=== PATIENT | female | born 1980 | race Caucasian/White ===

== ENCOUNTER → 2020-02-28 14:47 | Outpatient (BNVA) | payer BC, SELFPAY | PROVIDERS: Visit Provider Psychiatry & Neurology Psychiatry | DX: F41.1 Generalized anxiety disorder (principal); F33.1 Major depressive disorder, recurrent, moderate; F10.20 Alcohol dependence, uncomplicated; F12.20 Cannabis dependence, uncomplicated; F14.21 Cocaine dependence, in remission; F17.200 Nicotine dependence, unspecified, uncomplicated | CPT/HCPCS: 99204 ==

== ENCOUNTER → 2020-04-10 08:03 | Outpatient (BNVA) | payer BC, SELFPAY | PROVIDERS: Visit Provider Psychiatry & Neurology Psychiatry | DX: F33.1 Major depressive disorder, recurrent, moderate (principal); F41.1 Generalized anxiety disorder | CPT/HCPCS: 99213 ==

== ENCOUNTER → 2021-01-20 16:00 | Outpatient (BNVA) | payer OTHER, SELFPAY | PROVIDERS: Visit Provider Nurse Practitioner Family | DX: Z20.822 Contact with and (suspected) exposure to COVID-19 (principal) | CPT/HCPCS: 87635 ==

== ENCOUNTER 2021-02-09 16:42 | Emergency (ER) | payer OTHER, SELFPAY ==
[2021-02-09 17:57] VITALS: BP 135/82; PULSE 86; RESP 16; TEMP 36.8; O2SAT 99; BMI 26.4
--- NOTE | 2021-02-09 19:33 | W.ED.WOUNDLC ---
HPI - Wound/Laceration General: Chief Complaint: Wound/Laceration Stated Complaint: RASH ON FACE Time Seen by Provider: 02/09/21 19:33 History of Present Illness: HPI narrative: 40-year-old female comes in today with some lesions to the face. Patient states that she had a pimple to her right facial cheek and had picked at it now she has increased redness and swelling around it. Patient appears well. Patient appears no acute distress. Review of Systems General: Reports: 10 or more systems reviewed and unremarkable except in HPI and below Skin/Breast: Reports: other (Facial lesion) [facility] ED PFSH: Social History (Updated 01/20/21 @ 15:43 by Citlaly Ramirez NP) Smoking and tobacco status: current every day smoker cigarettes Packs smoked per day: 1 Years cigarettes smoked: 25 Current gender identity: Female Female Reproductive History: Date of last menstrual period: 01/20/21 Physical Exam Const: COMMON NORMALS: no acute distress and patient oriented x3 GENERAL APPEARANCE: cooperative HENMT: COMMON NORMALS: normocephalic and Normal external nose present HEAD & SCALP: normocephalic and other (Mild right periorbital swelling with several crusted lesions to the face) NOSE: Normal external nose present MOUTH: Normal oral and palatal mucosa present Eye: GENERAL EYE: appearance normal, both eyes and all related structures Neck/C-Spine: COMMON NORMALS: full ROM Chest: COMMONS NORMALS: normal inspection of the chest Resp: COMMON NORMALS: normal respiratory effort EFFORT & INSPECTION: Yes able to speak in complete sentences Cardio: COMMON NORMALS: regular rate and regular rhythm RATE: regular rate RHYTHM: regular rhythm GI: COMMON NORMALS: non-tender Extremity: COMMON NORMALS: normal to inspection Neuro: COMMON NORMALS: patient oriented x3 and moves all extremities Psych: COMMON NORMALS: mental status grossly normal and cooperative Skin: NARRATIVE SKIN EXAM: Picking lesions to the face. Course Vital Signs: Vital signs: Vital Signs Temperature 98.2 F 02/09/21 20:12 Pulse Rate 84 02/09/21 20:12 Respiratory Rate 16 02/09/21 20:12 Blood Pressure 128/78 02/09/21 20:12 Pulse Oximetry 99 02/09/21 20:12 MDM - Wound/Laceration MDM Narrative: Medical decision making narrative: Patient comes in for swelling and redness to the periorbital area of the right face. Patient also has a 1 cm crusted lesion to the right facial cheek. Patient also has 2 other crusted lesions of smaller diameter to the left facial cheek. Respirations are even lungs are clear to auscultation. Vital signs are normal. Differential diagnosis includes folliculitis, cellulitis, abscess, impetigo. I believe the patient probably has mild cellulitis secondary to impetigo to the face. This is due to patient picking lesions. Patient will be given mupirocin ointment to use to the lesions and Bactrim 1 tablet twice a day for 7 days to clear up cellulitis. Patient was recommended to monitor for worsening symptoms and return as needed. Courage patient not to pick at lesions. Discharge Plan Discharge Patient Disposition: Home Clinical Impression: Cellulitis of face Condition: Stable Prescriptions: New Bactrim DS 800-160 mg tablet 1 tab PO BID 7 Days Qty: 14 RF: 0 No Action hydroxyzine HCl 50 mg tablet 50 mg PO QID PRN (Reason: anxiety/insomnia) Qty: 120 RF: 2 methadone 40 mg tablet,soluble 60 mg PO DAILY RF: 0 Discharge Orders: Discharge ED (Routine); Ordered 02/09/21 Ordered By: Renan Gonzalez Discharge Diet: Usual diet Discharge Activity: Increase activity as tolerated Patient Instructions: Cellulitis (ED), Opioid Safety Activity Restrictions/Additional Instructions: Avoid picking at the wound. Wash face with mild soap and water. Apply antibiotic ointment to open wounds. Do not pick at the wounds. Take antibiotic sulfa trimethoprim 1 tablet twice a day for the next 7 days. Follow-up with primary care. Return to the ER for new concerns. Coding Level of Care Code ED [employer] Specialist for Gaye Marshall
[2021-02-09] MEDS: mupirocin oint 22 gm 1 APPLIC TOPICAL (20:06)
[2021-02-09] MEDS: sulfamethoxazole-trimeth DS 160-800 mg Tablet 1 TAB PO (20:06)
[2021-02-09 20:12] VITALS: BP 128/78; PULSE 84; RESP 16; TEMP 36.8; O2SAT 99
== END 2021-02-09 20:14 | disposition home or self-care (01) ==
PROVIDERS: Emergency Provider Nurse Practitioner Family
DX: L03.211 Cellulitis of face (principal)
CPT/HCPCS: 99283

== ENCOUNTER 2023-03-16 14:19 | Outpatient (CLI) | payer MEDICAID, SELFPAY ==
--- NOTE | 2023-03-16 14:26 | MR_ITS ---
WS: [id number] MRI LUMBAR SPINE NONCONTRAST HISTORY: LOW BACK PAIN COMPARISON: Radiographs 08/06/2022 TECHNIQUE: Sagittal and axial multisequence imaging is submitted. Normal lumbar alignment with no compression fractures or marrow edema. Mild disc desiccation without narrowing. Conus terminates normally at L1-2 disc level. L1-L2: Normal. L2-L3: Very mild annular disc bulging. No stenosis. L3-L4: Mild annular disc bulging and mild ligamentum flavum and facet arthritis. Minimal encroachment and narrowing of the foramina. L4-L5: Mild annular disc bulging with mild ligamentum flavum and facet arthritis. There is mild encro achment upon the traversing L5 nerve roots but no stenosis. L5-S1: Mild annular disc bulging. No focal disc protrusions. No stenosis. Paravertebral soft tissues are normal. IMPRESSION: 1. No high-grade central or foraminal stenosis and no disc protrusions. 2. Very mild encroachment upon the foramina of L3-4. No stenosis. 3. Mild disc encroachment upon the subarticular recesses and the traversing L5 nerve roots. No high-g rade stenosis.
== END 2023-03-16 14:20 | disposition home or self-care (01) ==
PROVIDERS: PCP Family Medicine; Visit Provider Family Medicine
DX: M54.50 Low back pain, unspecified (principal)
CPT/HCPCS: 72148

== ENCOUNTER 2024-03-30 19:11 | Emergency (ER) | payer MEDICAID, SELFPAY ==
[2024-03-30 19:26] VITALS: BP 132/83; PULSE 109; RESP 16; TEMP 36.9; O2SAT 95; BMI 28.3
--- NOTE | 2024-03-30 19:47 | ED_ITS ---
HPI - Dental/Oral General: Chief complaint: Dental/Oral Stated complaint: Face Swollen Time Seen by Provider: 03/30/24 19:45 History of Present Illness: 43-year-old female comes in today for so me facial swelling. Patient states that she was referred to the ER to have her abscess drained by her dentist. Patient appears nontoxic. Patient was started on Augmentin today after being evaluated by the dentist who told her that she would need to see seen in the ER to have the abscess drained or see a maxillofacial facial surgeon. Patient appears nontoxic. Patient is handling secretions well. Patient has not started antibiotics. Mild swelling is noted. Related Data Home Medications Medication Instructions Recorded Confirmed methadone 40 mg soluble tablet 60 mg PO DAILY 01/20/21 01/20/21 Previous Rx's Medication Instructions Recorded hydroxyzine HCl 50 mg tablet 50 mg PO QID PRN anxiety/insomnia 04/10/20 #120 tabs prednisone 20 mg tablet 20 mg PO BID 5 days #10 tabs 03/30/24 Allergies Allergy/AdvReac Type Severity Reaction Status Date / Time No Known Allergies Allergy Verified 01/20/21 15:42 Review of Systems General: Reports: 10 or more systems reviewed and unremarkable except in HPI and below PFSH ED PFSH: Social History (Updated 01/20/21 @ 15:43 by Citlaly Ramirez NP) Smoking and tobacco/nicotine status: current every day tobacco/nicotine user cigarettes Packs smoked per day: 1 Years cigarettes smoked: 25 Current gender identity: Female Physical Exam Const: COMMON NORMALS: alert HENMT: OTHER: Patient has mild swelling to the left lower jaw. Examination of the oral cavity and gingiva notes no obvious abscess. Posterior pharynx is normal. Neck/C-Spine: COMMON NORMALS: full ROM Resp: COMMON NORMALS: normal respiratory effort Cardio: COMMON NORMALS: regular rate RATE: regular rate GI: COMMON NORMALS: Soft to palpation PALPATION: Yes Soft to palpation Back/Pelvis: COMMON NORMALS: thoracic and lumbar spine normal to inspection Extremity: COMMON NORMALS: normal to inspection Neuro: SENSORIUM/ORIENTATION: Yes alert Skin: COMMON NORMALS: turgor normal GENERAL SKIN EXAM: turgor normal Course Vital Signs: Vital signs: Vital Signs Temperature 98.4 F 03/30/24 19:26 Pulse Rate 109 H 03/30/24 19:26 Respiratory Rate 16 03/30/24 19:26 Blood Pressure 132/83 03/30/24 19:26 Pulse Oximetry 95 03/30/24 19:26 MDM - Dental/Oral Medical Decision Making 43-year-old female comes in today with some left jaw swelling. On exam patient has some mild swelling and tenderness to the left lower jaw. Patient has tenderness to the first molar of the left lower jaw to percussion. No obvious abscess is noted at this time to the gingiva. Posterior pharynx is normal. Differential diagnosis includes periapical abscess, dental pain, dental caries. Patient was treated in the ER with some Augmentin, dexamethasone, and ketorolac for pain. Patient was recommended to take medication as directed and follow-up with her dentist. No obvious area to drain an abscess was visualized. No radiology studies performed this visit Discharge Plan Discharge Patient Disposition: Home Clinical Impression: Dental abscess Condition: Stable Prescriptions: New prednisone 20 mg tablet 20 mg PO BID 5 Days Qty: 10 0RF No Action hydroxyzine HCl 50 mg tablet 50 mg PO QID PRN (Reason: anxiety/insomnia) Qty: 120 2RF methadone 40 mg tablet,soluble 60 mg PO DAILY Discharge Orders: Discharge ED (Routine); Ordered 03/30/24 Ordered By: Renan Gonzalez Referrals: Jay Coates MD [Primary Care Provider] - Discharge Diet: Usual diet Discharge Activity: Increase activity as tolerated Patient Instructions: Dental Abscess (ED) Activity Restrictions/Additional Instructions: Follow-up with maxillofacial surgeon. Use of the antibiotics will start working within 3 to 5 days and the swelling would resolve. The tooth may be pulled or may need to have a root canal. We do not perform the stuff in the emergency department. Return to the ER for difficulty swallowing, shortness of breath, or new concerns. Coding Level of Care Code ED [employer] for Gaye Marshall
[2024-03-30] MEDS: dexamethasone 10 mg/mL INJ IM (20:02)
[2024-03-30] MEDS: amoxicillin-clav 875-125 mg Tablet 1 TAB PO (20:02)
[2024-03-30] MEDS: ketorolac 30 mg/mL INJ IM (20:03)
--- NOTE | 2024-03-30 20:17 | PC.NURSE ---
pt requesting that dental abscess to be drained and also requesting that pt receive Intravenous antibiotics. This nurse has brought pt's PO ABT and other medicine. PT requested to talk to provider stating I read here that if I don't get this drained I could from the swelling and toxic poisoned released from it, and that by mouth medication won't work. Pt requesting to speak to provider, provider Carlos informed and Carlos seen and spoke with pt and pt's over appropriate treatment for condition at this time.
== END 2024-03-30 20:16 | disposition home or self-care (01) ==
PROVIDERS: Emergency Provider Nurse Practitioner Family; PCP Family Medicine
DX: K04.7 Periapical abscess without sinus (principal); F17.210 Nicotine dependence, cigarettes, uncomplicated
CPT/HCPCS: 96372; 99284; J1100; J1885

== ENCOUNTER 2024-08-25 13:58 | Outpatient (CLI) | payer OTHER, SELFPAY ==
--- NOTE | 2024-08-25 | MM_ITS ---
WS: [id number] BILATERAL 3D TOMOSYNTHESIS DIGITAL SCREENING MAMMOGRAPHY WITH CAD CLINICAL INFORMATION: ANNUAL SCREENING HISTORY: Screening mammogram. No current complaints. COMPARISON: Baseline TECHNIQUE: Bilateral CC and MLO views. FINDINGS: The breasts are composed of heterogeneous fibroglandular density tissue, which can limit the detection of small underlying mass lesions. No suspicious mass, asymmetry, calcifications, or architectural distortion. No evidence of malignancy. MM/MM scr tomosynthesis [id number] IMPRESSION: DENSITY: The breasts are heterogeneously dense, which may obscure small masses. BI-RADS: 1 - Negative FOLLOW UP: 1 Year Follow-up Recommend return to annual screening mammography.
== END 2024-08-25 13:59 | disposition home or self-care (01) ==
PROVIDERS: PCP Family Medicine; Visit Provider Family Medicine
DX: Z12.31 Encounter for screening mammogram for malignant neoplasm of breast (principal); R92.333 Mammographic heterogeneous density, bilateral breasts
CPT/HCPCS: 77063; 77067

== ENCOUNTER 2024-09-20 15:43 | Outpatient (CLI) | payer OTHER, SELFPAY | END 2024-09-20 15:44 | disposition home or self-care (01) | LOC: SLEEP 15:45 | PROVIDERS: PCP Family Medicine; Visit Provider Family Medicine | DX: G47.10 Hypersomnia, unspecified (principal) | CPT/HCPCS: G0399 ==